=== PATIENT | female | born 1950 | race Two or more races ===

== ENCOUNTER 2019-12-22 07:00 | Day surgery (SDC) | payer OTHER ==
[~2019-12-22 07:00] MED LIST: ASPIR 8181 MG PO; HYZAAR 100-251 EACH PO; TOPROL XL25 M1 PO; ZOCOR40 MG PO
== END 2019-12-22 21:15 | disposition home or self-care (01) ==
LOC: CIR.AMB 07:00
PROVIDERS: ATTEND Orthopaedic Surgery Hand Surgery
DX: M19.031 Primary osteoarthritis, right wrist (principal); Z20.828 Contact with and (suspected) exposure to other viral communicable diseases
CPT/HCPCS: 25825; 25215; 64721; C1776